=== PATIENT | female | born 1975 | race Caucasian/White ===

== ENCOUNTER → 2018-06-15 15:55 | Outpatient (CLI) | payer OTHER, SELFPAY ==
--- NOTE | 2018-06-15 16:29 | CT_ITS ---
STUDY: CT ABDOMEN AND PELVIS WITH CONTRAST REASON FOR EXAM: Female, 42 years old. Left flank pain. Left lower quadrant pain. RADIATION DOSAGE (If Supplied By Facility): CTDIvol = ( 18.17 ) mGy, DLP = ( 1298.39 ) mGycm TECHNIQUE: Transaxial images were obtained from the dome of the diaphragm to the symphysis pubis with oral contrast. 100ML ml of Isovue 300 contrast was administered. Sagittal and coronal images were reconstructed. Individualized dose optimization techniques were used for this CT. COMPARISON: None. FINDINGS: The visualized lung bases are unremarkable. The visualized portions of the heart are within normal limits. There is mild fatty infiltration liver without focal mass. Normal gallbladder and biliary ductal system. Normal spleen. Normal pancreas. Normal bilateral adrenal glands. Normal right kidney. Normal left kidney. Normal visualized ureters. There is a small type I hiatal hernia. The stomach is otherwise unremarkable. Normal small intestine. Normal colon. The appendix is visualized and appears normal. Normal abdominal aorta. Normal inferior vena cava. Normal retroperitoneum. Normal urinary bladder. Normal uterus. There is evidence of tubal ligation. The ovaries appear normal. There is no pelvic lymphadenopathy. No free air or free fluid is seen within the abdominal cavity. There is an umbilical hernia of omental fat. There are small bilateral inguinal hernias of omental fat. The abdominal wall is otherwise unremarkable. Normal osseous structures. CT/Abdomen/Pelvis WITH Contrast IMPRESSION: 1. Mild fatty infiltration without mass. 2. Small hiatal hernia. 3. Status post tubal ligation. 4. Umbilical and bilateral inguinal hernias of omental fat. 5. Otherwise normal CT of the abdomen and pelvis. Electronically Signed: Yosi Baldwin DO at 19:02 EDT Tel [phone], Service support ,
[2018-06-15 16:36] LABS: Absolute Lymphocyte Count 3.12 X10^3/ul (0.83-4.51); Absolute Neutrophil Count 4.5 X10^3/uL (2.0-7.7); Basophil# 0.04 X10^3/uL; Basophil% 0.5 % (0-1); Eosinophil# 0.11 X10^3/uL; Eosinophils% 1.3 % (0-5); Hematocrit 40.3 % (37-47); Hemoglobin 13.6 g/dl (12.0-15.0); Lymphocyte # 3.12 X10^3/ul (4.0); Lymphocyte % 37.1 % (19-41); Mean Corp Hgb Conc 33.7 g/gl (32-36); Mean Corpuscular Hgb 29.8 pg (27.0-32.0); Mean Corpuscular Volume 88.4 fL (81-99); Mean Platelet Vol. 9.4 fl (6.2-12.0); Monocyte# 0.67 X10^3/uL; Neutrophil # 4.45 X10^3/uL (2.7-7.7); Neutrophil % 52.9 % (47-70); Platelet Count 327 K/mm3 (150-450); RBC Distribution Width CV 12.8 % (11.6-14.6); RBC Distribution Width SD 40.9 fl (35.1-43.9); Red Blood Count 4.56 M/mm3 (4.2-5.4); White Blood Count 8.4 K/mm3 (4.4-11.0)
[2018-06-15 16:38] LABS: POSITIVE COUNT NO; POSITIVE DIFFERENTIAL NO; POSITIVE MORPHOLOGY NO
--- NOTE | 2018-06-15 16:39 | RAD_ITS ---
STUDY: X-RAY - THORACIC SPINE REASON FOR EXAM: Female, 42 years old. Fall. Back pain. TECHNIQUE: 3 view(s) of the thoracic spine were obtained. COMPARISON: None. FINDINGS: Normal kyphosis of the thoracic spine. There is no substantial scoliosis. There is multilevel endplate spondylosis of the thoracic vertebrae. There is multilevel disc space narrowing of the thoracic spine. There is no evidence of acute fracture or loss of vertebral axial height. There is contrast in the fundus of the stomach. RAD/Thoracic Spine 3 Views IMPRESSION: Minimal degenerative changes of the lumbar spine without fracture or subluxation. Electronically Signed: Yosi Baldwin DO at 21:04 EDT Tel [phone], Service support ,
--- NOTE | 2018-06-15 16:45 | RAD_ITS ---
STUDY: X-RAY - LUMBAR SPINE REASON FOR EXAM: Female, 42 years old. Fall. Lower back pain. TECHNIQUE: 5 view(s) of the lumbar spine were obtained. COMPARISON: None FINDINGS: There is slight exaggeration of the lumbar lordosis. There is no substantial scoliosis. There is a normal alignment of the vertebrae. Normal vertebral bodies and endplates. Normal disc space heights. There is no evidence of acute fracture or loss of vertebral axial height. There is no demonstrated spondylolysis of the pars interarticulares. There is spina bifida occulta of S1. Tubal ligation clips are seen in the pelvis. RAD/L/S Spine Min 4 Views IMPRESSION: Exaggerated lumbar lordosis without degenerative change. There is no acute fracture or subluxation. Electronically Signed: Yosi Baldwin DO at 22:29 EDT Tel [phone], Service support ,
[2018-06-15 16:50] LABS: AST(SGOT) 17 U/L (15-37); Alanine Aminotransfer ALT/SGPT 25 U/L (13-56); Albumin, Serum 3.6 g/dL (3.2-5.0); Alkaline Phosphatase 83 U/L (45-117); Anion Gap 9 (5-15); BUN 9 mg/dL (7-18); BUN/Creat Ratio 10.4 RATIO (10-20); CRP 9.41 mg/L (0.0-3.0); Calcium,Total 8.9 mg/dL (8.5-10.1); Chloride 104 mmol/L (98-107); Creatinine, Serum 0.87 mg/dL (0.55-1.02); EST Glomerular Filtration Rate 75 mL/min (>60); Est Glom Filt Rate - Afr Amer 91 mL/min (>60); Globulin 3.7 g/dL (2.2-4.2); Glucose 92 mg/dL (74-106); Protein, Total 7.3 g/dL (6.4-8.2); Sodium Level 140 mmol/L (136-145)
[2018-06-15 17:02] LABS: Erythrocyte Sedimentation Rate 17 mm/hr (0-20)
== END ==
PROVIDERS: Family Provider Internal Medicine; PCP Internal Medicine; Visit Provider Nurse Practitioner Gerontology
DX: M54.9 Dorsalgia, unspecified (principal); R10.9 Unspecified abdominal pain
CPT/HCPCS: 36415; 72072; 72110; 74177; 80053; 85025; 85652; 86140; Q9967

== ENCOUNTER → 2018-06-15 16:43 | Outpatient (CLI) | payer OTHER, SELFPAY | PROVIDERS: Family Provider Internal Medicine; PCP Internal Medicine; Visit Provider Nurse Practitioner Gerontology | DX: R10.9 Unspecified abdominal pain (principal); M54.9 Dorsalgia, unspecified ==

== ENCOUNTER → 2018-06-24 09:47 | Outpatient (CLI) | payer OTHER, SELFPAY ==
--- NOTE | 2018-06-24 09:50 | US_ITS ---
STUDY: ABDOMINAL ULTRASOUND - RIGHT UPPER QUADRANT REASON FOR VISIT: Female, 42 years old. Right upper quadrant pain TECHNIQUE: Ultrasound evaluation of the right upper quadrant was performed with real-time and static montanez-scale imaging. TECHNICAL QUALITY: Adequate. COMPARISON: CT scan from 06/15/2018 FINDINGS: Liver: The liver measures 18.3 cm. There is increased echogenicity consistent with fatty infiltration. The bile ducts are within normal limits. There is hepatic color flow. The direction of portal flow is hepatopetal. There is no demonstrated mass lesion. Gallbladder: Normal distended gallbladder. The gallbladder wall measures 3 mm. There is a negative sonographic Mendiola's sign. There is no pericholecystic fluid. There are no gallstones. Common Bile Duct (C.B.D.): The common bile duct measures 3 mm. Pancreas: Normal size of the head, body and tail of the pancreas. There is normal echogenicity of the pancreas. There is no demonstrated pancreatic mass or cyst. Right Kidney: Normal size of the right kidney. The right kidney measures 12.1 x 5.8 x 5.1 cm. Normal renal cortex. The right cortex measures 1.9 cm. There is no demonstrated renal mass or cyst. There is no right hydronephrosis. US/Gallbladder IMPRESSION: Fatty infiltration of liver, no discrete lesion Electronically Signed: Mani Johnson MD at 10:43 EDT , Service support ,
== END ==
PROVIDERS: Family Provider Internal Medicine; PCP Internal Medicine; Visit Provider Internal Medicine
DX: R10.11 Right upper quadrant pain (principal)
CPT/HCPCS: 76705

== ENCOUNTER 2018-07-29 11:12 | Day surgery (SDC) | payer OTHER, SELFPAY ==
--- NOTE | 2018-07-29 | EGD_PTH ---
PATIENT: MELECIO DAILY LOC: EN U#:[id number] AGE/SX: 42/F ROOM: RE07/29/[address]: Dr. Ronal Goldberg MD : 1975 BED: DIS: 07/29/2018 SPEC #: [id number] RECD: 07/30/18 09:15 STATUS: [place] #: [id number] PIO: 07/29/18 00:[address]: Ronal Goldberg DEPT: SURGICAL PATHOLOGY RECD BY: Ryne Barreto ENTERED: 07/30/18 09:15 SP TYPE: EGD BIOPSY OT DR: Dr. Laya Ramirez, DO Tissues: Esophageal mucous membrane Procedures: Special Stain Group I Surgery Specimen Level IV GMS Stain (control) HEADER OPERATION: EGD (MAC) PRE-OP DIAGNOSIS: Epigastric abdominal pain TISSUE SUBMITTED: Biopsy of distal esophagus MICROSCOPIC DIAGNOSIS Distal esophagus, biopsy: Focal ulceration with associated acute and chronic inflammation and granulation. Negative for fungal organisms. Focal changes consistent with reflux. AM:luis 07/31/18 COMMENT GMS stain with matched control was used in the evaluation of this case. MICROSCOPIC DESCRIPTION Slides are reviewed. GROSS DESCRIPTION Received in fixative is one container labeled with the patient's name and designated distal esophagus. The specimen consists of multiple irregular fragments of light whalen soft tissue that in aggregate measure 0.5 x 0.3 x 0.1 cm. The specimen is totally submitted in one cassette. / AM:luis 07/30/18 TC:2 CPT: 33068, 58564
[2018-07-29 11:34] LABS: Internal QC Validated? YES +Cl - CLEAR BKGD
[2018-07-29 11:36] LABS: Pregnancy, Urine Negative Negative
[2018-07-29 11:38] VITALS: BP 124/86; PULSE 92; RESP 16; TEMP 36.6; O2SAT 97; BMI 41.6
[2018-07-29 11:50] LABS: Bedside Glucose 98 mg/dL (70-110)
--- NOTE | 2018-07-29 12:24 | PCM.OPRPT ---
Problem List (1) Epigastric pain Status: Acute (2) GERD (gastroesophageal reflux disease) Status: Acute Qualifiers: Esophagitis presence: with esophagitis Qualified Code(s): K21.0 - Gastro-esophageal reflux disease with esophagitis Report of Operation Date of Procedure: 07/29/18 Pre-Operative Diagnosis: Epigastric abdominal pain. Gastroesophageal reflux disease Post-Operative Diagnosis: Same Surgery/Procedure Performed:: Esophagogastroduodenoscopy with biopsy Type of Anesthesia:: MAC Description of Procedure: Patient was brought into the endoscopy suite. Back of her throat was sprayed with Cetacaine spray. Bite-block was placed. She was placed in the left lateral decubitus position. She was given graded anesthesia. Scope was inserted in the back of the oropharynx and directed down through the esophagus into the stomach and into the duodenum without difficulty. Operative findings: 1. Duodenum: Normal appearance no mass lesions normal ileocecal valve. 2. Stomach: Normal appearance no mass lesions no ulcerations no erythema retroflexion did show a small hiatal hernia. 3. Esophagus: Z line was at 34 cm. There was some mild distal esophagitis. Biopsies of this were obtained. This was measuring approximately 1 cm in length and about 7 mm in width. There were no other mass lesions there was no signs of active bleeding. I will see the patient back in 1 week. We will start treating her with a proton pump inhibitor and she can follow-up with me with a repeat scope depending on what the biopsy results show. - Admit VTE Documentation VTE Present on Admission: No VTE Mechan Device Prophylaxis: None VTE Pharm Prophylaxis ordered?: No Reason prophylaxis not ordered:: Treatment Not Indicated
[2018-07-29 12:28] VITALS: BP 113/76; BP 124/86; PULSE 91; RESP 16; TEMP 36.9; O2SAT 98
[2018-07-29 12:30] VITALS: BP 114/76; BP 124/86; PULSE 86; RESP 16; O2SAT 99
[2018-07-29 12:35] VITALS: BP 124/86; BP 130/77; PULSE 83; RESP 16; O2SAT 98
[2018-07-29 12:40] VITALS: BP 124/86; BP 126/78; PULSE 87; RESP 16; TEMP 36.2; O2SAT 100
== END 2018-07-29 13:02 | disposition home or self-care (01) ==
LOC: EN 11:12 → AC 11:14
PROVIDERS: Family Provider Internal Medicine; PCP Internal Medicine; Visit Provider Surgery
PROC: 0DJ08ZZ Inspection of Upper Intestinal Tract, Via Natural or Artificial Opening Endoscopic (ICD-10-PCS; CPT 43235; principal; 2018-07-29 12:25)
DX: K21.0 Gastro-esophageal reflux disease with esophagitis (principal); K22.10 Ulcer of esophagus without bleeding; K44.9 Diaphragmatic hernia without obstruction or gangrene; K42.9 Umbilical hernia without obstruction or gangrene; K40.20 Bilateral inguinal hernia, without obstruction or gangrene, not specified as recurrent; E11.9 Type 2 diabetes mellitus without complications; M19.90 Unspecified osteoarthritis, unspecified site; Z79.84 Long term (current) use of oral hypoglycemic drugs; Z79.82 Long term (current) use of aspirin; Z79.899 Other long term (current) drug therapy; Z87.891 Personal history of nicotine dependence
CPT/HCPCS: 43239; 81025; 82962; 88305; 88312; J7120

== ENCOUNTER → 2019-03-01 14:28 | Outpatient (CLI) | payer OTHER, SELFPAY ==
--- NOTE | 2019-03-01 14:33 | RAD_ITS ---
STUDY: X-RAY CHEST REASON FOR EXAM: Female, 43 years old. Cough. One week history of flulike symptoms. TECHNIQUE: PA and lateral views of the chest. COMPARISON: None. FINDINGS: The lungs are clear and expanded. There is no demonstrated pleural abnormality. Normal size heart. Normal mediastinum and juliet. Normal visualized pulmonary arteries. Normal visualized aortic arch and descending thoracic aorta. There are mild degenerative changes of the visualized thoracic spine. Normal visualized ribs, clavicles, and shoulders. There is no demonstrated abnormality of the visualized soft tissue structures of the upper abdomen. RAD/Chest PA and Lateral IMPRESSION: Normal x-ray examination of the chest. Electronically Signed: Shawn Lott, at 14:52 EDT , Service support ,
== END ==
LOC: HPRAD 14:30
PROVIDERS: Family Provider Internal Medicine; PCP Internal Medicine; Referring Provider Internal Medicine; Visit Provider Internal Medicine
DX: R05 Cough (principal)
CPT/HCPCS: 71046